=== PATIENT | female | born 1985 | race Caucasian/White ===

== ENCOUNTER 2016-11-03 15:36 | Emergency (ER) | payer OTHER ==
[~2016-11-03] VITALS: Ht 157.5 cm; Wt 77.1 kg
[~2016-11-03 15:36] MED LIST: AUGMENTIN 875 M1 TAB PO; CYCLOBENZAPRINE5 M2 PO; LOMOTIL 2.5-0.1 EACH PO; LOTRISONE CREAM15 GM TOP; NAPROSYN500 M1 PO; NASONEX17 GM NASB; PREDNISONE50 MG PO; PROVENTIL0.09 MG/A1 INH; ZOFRAN ODT4 M1 PO
--- NOTE | 2016-11-03 16:38 | ED INFLUENZA/URI COMPLAINT ---
History of Present Illness General Chief Complaint: General Adult Stated Complaint: FLU SYNPTOMS Source: patient, old records Exam Limitations: no limitations Vital Signs & Intake/Output Vital Signs & Intake/Output Vital Signs Date Time Temp Pulse Resp B/P Pulse O2 O2 Flow FiO2 Ox Delivery Rate 11/03 1801 97.8 88 18 110/80 99 / 1752 Room Air 11/03 1540 97.6 87 16 115/79 98 Room Air ED Intake and Output 11/04 0000 11/03 1200 Intake Total 1000 Output Total Balance 1000 Intake, IV 1000 Patient 170 lb Weight Allergies Coded Allergies: clarithromycin (From BIAXIN) (HIVES 07/19/16) ibuprofen (HIVES 07/19/16) Reconcile Medications Metoclopramide HCl (Reglan) 10 MG TABLET 1 TAB PO Q6 PRN nausea Triage Note: PT STATES SHE THINKS SHE HAS THE FLU SINCE LAST SATURDAY. PT HAS BODY ACHES, FEVER AND THEN BEGAN TO HAVE DIARRHEA. PT STATES SHE HAS NAUSEA Triage Nurses Notes Reviewed? yes : No Patient currently breastfeeds: No HPI: Patient is a 31-year-old female presents complaining of flulike symptoms. Symptoms onset 4 days ago. Patient reports she had a fever up to 101.4 which resolved 3 days ago. Nasal congestion with associated yellow rhinorrhea. Cough with sputum production. Patient had myalgias which have been improving. Associated nausea and diarrhea. Patient reports she has had minimal oral intake due to the severe nausea. Patient has been feeling lightheaded intermittently. Intermittent headache consistent with previous migraines. Patient had been taking Tylenol for her fevers and body aches. Positive sick contacts. Patient denies abdominal pain, chest pain (MARYURI BAIRES) Past History Travel History Traveled to [place] past 21 day No Medical History Any Pertinent Medical History? 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 No (MARYURI BAIRES) Review of Systems Review of Systems Constitutional: Reports: chills, fever (resolved), malaise, weakness. EENTM: Reports: nasal congestion. Respiratory: Reports: cough. Denies: short of breath. Cardiovascular: Denies: chest pain. GI: Reports: diarrhea, nausea. Denies: abdominal pain. Genitourinary: Reports: no symptoms. Musculoskeletal: Reports: muscle pain. Skin: Reports: no symptoms. Neurological/Psychological: Reports: headache. Hematologic/Endocrine: Reports: no symptoms. Immunologic/Allergic: Reports: no symptoms. (MARYURI BAIRES) Physical Exam Physical Exam General Appearance: well developed/nourished, alert, awake Head: atraumatic, normal appearance Eyes: Bilateral: normal appearance, PERRL, EOMI. Ears, Nose, Throat: normal ENT inspection, moist mucous membrane, hearing grossly normal, Tympanic normal, pharynx normal Neck: normal inspection, supple, full range of motion Respiratory: normal breath sounds, chest non-tender, no respiratory distress, lungs clear Cardiovascular: regular rate/rhythm Gastrointestinal: normal bowel sounds, soft, non-tender Back: normal inspection, normal range of motion Extremities: normal inspection, normal capillary refill, normal range of motion, no edema Neurologic/Psych: no motor/sensory deficits, awake, alert, oriented x 3, normal gait, normal mood/affect Skin: intact, normal color, warm/dry Lymphatic: bilateral anterior cervical lymphadenopathy Core Measures Severe Sepsis Present: No Septic Shock Present: No (MARYURI BAIRES) Progress Differential Diagnosis: influenza, meningitis, neutropenia, otitis, pneumonia, pharyngitis, sinusitis Plan of Care: Orders Procedure Date/time Status COMPREHENSIVE METABOLIC PANEL 11/03 1642 Complete CBC WITHOUT DIFFERENTIAL 11/03 1642 Complete RAPID VIRAL INFLUENZA A 11/03 1543 Complete Laboratory Tests 11/03/16 1707: Anion Gap 11, Estimated GFR > 60, BUN/Creatinine Ratio 10.0, Glucose 77, Calcium 9.2, Total Bilirubin 0.5, AST 21, ALT 36, Alkaline Phosphatase 58, Total Protein 7.4, Albumin 4.3, Globulin 3.1, Albumin/Globulin Ratio 1.4, CBC w Diff NO MAN DIFF REQ, RBC 4.30, MCV 89.1, MCH 29.9, RDW 13.6, MPV 8.6, Gran % 57.7, Lymphocytes % 34.9, Monocytes % 4.5, Eosinophils % 2.5, Basophils % 0.4, Absolute Granulocytes 4.5, Absolute Lymphocytes 2.7, Absolute Monocytes 0.4, Absolute Eosinophils 0.2, Absolute Basophils 0, PUBS MCHC 33.6 Patient reports significant improvement after IV fluids and IV Reglan. Patient nontoxic appearing, tolerating oral intake. Results of labs and influenza swab discussed with the patient. Patient appears stable for discharge. (MARYURI BAIRES) Initial ED EKG: none (MARYURI BAIRES) Departure Departure Time of Disposition: 1752 Disposition: HOME OR SELF CARE Condition: Stable Clinical Impression Primary Impression: Viral syndrome Referrals: AYE MYERS MD (PCP/Family) Additional Instructions: Drink plenty fluids and rest. Immodium as directed to help with your diarrhea. Follow-up with your primary care provider if no improvement by Saturday. Return to the emergency department if unable to stay hydrated, any increasing abdominal pain, difficulty breathing or worsening of symptoms. Departure Forms: Customer Survey General Discharge Information Prescriptions: Current Visit Scripts Metoclopramide HCl (Reglan) 1 TAB PO Q6 PRN nausea #12 TAB (MARYURI BAIRES) PA/MANAGER STRATEGIC ALLIANCES Co-Sign Statement Statement: ED Attending supervision documentation- [] I saw and evaluated the patient. I have also reviewed all the pertinent lab results and diagnostic results. I agree with the findings and the plan of care as documented in the PA's/MANAGER STRATEGIC ALLIANCES's documentation. [X] I have reviewed the ED Record and agree with the PA's/MANAGER STRATEGIC ALLIANCES's documentation. [] Additions or exceptions (if any) to the PAs/MANAGER STRATEGIC ALLIANCES's note and plan are summarized below: [] (SUYAPA MORENO,ELIZABETH)
[2016-11-03 17:15] LABS: ABSOLUTE BASOPHIL COUNT 0 /CUMM (0.0-0.2); ABSOLUTE EOSINOPHIL COUNT 0.2 /CUMM (0.0-0.7); ABSOLUTE GRANULOCYTE CT 4.5 /CUMM (1.4-6.5); ABSOLUTE LYMPH COUNT 2.7 /CUMM (1.2-3.4); ABSOLUTE MONOCYTE COUNT 0.4 /CUMM (0.10-0.60); BASOPHIL % 0.4 % (0.0-2.0); EOSINOPHIL % 2.5 % (0-5); GRANULOCYTE % 57.7 % (42.2-75.2); HEMATOCRIT 38.3 % (37-47); MEAN CORPUSCULAR HGB 29.9 PG (27.0-31.0); MEAN CORPUSCULAR HGB CONC 33.6 G/DL (33.0-37.0); MEAN CORPUSCULAR VOLUME 89.1 FL (81.0-99.0); MEAN PLATELET VOLUME 8.6 FL (7.4-10.4); PLATELET COUNT 218 /CUMM (130-400); RBC DISTRIBUTION WIDTH 13.6 % (11.5-14.5); WHITE BLOOD CELL COUNT 7.7 /CUMM (4.8-10.8)
[2016-11-03] MEDS ORDERED: REGLAN10 M1 PO (17:56)
[2016-11-03 18:01] VITALS: BP 110/80
== END 2016-11-03 18:22 ==
LOC: ERH 15:36
PROVIDERS: Physician Assistant
DX: B34.9 Viral infection, unspecified (principal)
CPT/HCPCS: 87804; 87804-59; 96361; 96374; J2765

== ENCOUNTER 2018-01-12 13:41 | Emergency (ER) | payer OTHER ==
[~2018-01-12] VITALS: Ht 157.5 cm; Wt 79.4 kg
[~2018-01-12 13:41] MED LIST changes: +AMOXICILLIN875 M1 PO; +BENZONATATE200 M1 PO; +MEDROL4 M2 PO; +PREDNISONE50 M1 PO; +PROAIR HFA8.5 GM INH; +PROVENTIL HFA6.7 GM INH; +REGLAN10 M1 PO; +ZOFRAN ODT4 M1 SL
[2018-01-12 14:44] LABS: ABSOLUTE BASOPHIL COUNT 0.1 /CUMM (0.0-0.2); ABSOLUTE EOSINOPHIL COUNT 0.3 /CUMM (0.0-0.7); ABSOLUTE GRANULOCYTE CT 10.7 /CUMM (1.4-6.5); ABSOLUTE LYMPH COUNT 3.1 /CUMM (1.2-3.4); ABSOLUTE MONOCYTE COUNT 0.5 /CUMM (0.10-0.60); BASOPHIL % 0.5 % (0.0-2.0); EOSINOPHIL % 2.3 % (0-5); GRANULOCYTE % 72.6 % (42.2-75.2); HEMATOCRIT 41.9 % (37-47); MEAN CORPUSCULAR HGB CONC 32.2 G/DL (33.0-37.0); MEAN PLATELET VOLUME 8.5 FL (7.4-10.4); PLATELET COUNT 396 /CUMM (130-400); RBC DISTRIBUTION WIDTH 14.2 % (11.5-14.5); RED BLOOD CELL CT 4.66 /CUMM (4.20-5.40); WHITE BLOOD CELL COUNT 14.7 /CUMM (4.8-10.8)
--- NOTE | 2018-01-12 15:19 | ED GENERAL ADULT ---
History of Present Illness General Chief Complaint: General Adult Stated Complaint: ?FLU,BODY ACHES,NAUSEA,DIARREHA Source: patient, family Exam Limitations: no limitations Vital Signs & Intake/Output Vital Signs & Intake/Output Vital Signs Date Time Temp Pulse Resp B/P B/P Pulse O2 O2 Flow FiO2 Mean Ox Delivery Rate 01/12 1744 98.0 70 18 115/72 97 Room Air Room Air 01/12 1642 98.2 71 18 116/73 100 Room Air 01/12 1358 97.6 102 18 123/85 98 Room Air Allergies Coded Allergies: clarithromycin (From BIAXIN) (HIVES 07/19/16) ibuprofen (HIVES 07/19/16) Reconcile Medications Albuterol Sulfate (Proventil Hfa) 90 MCG HFA.AER.AD 2 PUF INH Q4 sob Amoxicillin 875 MG TABLET 1 TAB PO BID bronchitis Benzonatate 200 MG CAPSULE 1 CAP PO TIDPRN cough Methylprednisolone. (Medrol) 4 MG TAB.DS.PK 1 DP PO AD bronchitis 6 on day 1 then reduce by one tablet daily until gone Ondansetron (Zofran Odt) 4 MG TAB.RAPDIS 1 TAB SL TID PRN NAUSEA Ondansetron (Zofran Odt) 4 MG TAB.RAPDIS 1 TAB SL TID Nausea Triage Note: REPORTS BODY ACHES, CHILLS. ALSO REPORTS DIARRHEA. THE SYMPTOMS BEGAN LAST NIGHT. NO FEVER. Triage Nurses Notes Reviewed? yes : No Patient currently breastfeeds: No HPI: 32 yo F PMH Asthma, Anxiety presenting with URI Sx, N/V/D. URI Sx for the last 2 -3 days with mild cough, congestion, rhinorrhea, dry/itchy throat. Associated systemic Sx with fatigue, malaise, myalgias, arthralgias. Nausea without emesis leading to decreased PO intake and diarrhea starting last night, 5 episodes of loose watery non-bloody bowel movements. Mild abdominal cramping relieved by diarrhea, no abdominal pain currently. Denies chest pain, palpitations, SOB, urinary Sx, vaginal Sx, headache, neck pain, focal neurologic Sx, rash. No recent travel or sick contacts. Past History Travel History Traveled to [place] past 21 day No Medical History Any Pertinent Medical History? 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 Yes Review of Systems Review of Systems Constitutional: Reports: see HPI. EENTM: Reports: see HPI. Respiratory: Reports: see HPI. Cardiovascular: Reports: no symptoms. GI: Reports: see HPI. Genitourinary: Reports: no symptoms. Musculoskeletal: Reports: no symptoms. Skin: Reports: no symptoms. Neurological/Psychological: Reports: no symptoms. Hematologic/Endocrine: Reports: no symptoms. Immunologic/Allergic: Reports: no symptoms. All Other Systems: Reviewed and Negative Physical Exam Physical Exam General Appearance: no apparent distress, alert, awake, anxious Head: atraumatic Eyes: Bilateral: PERRL, EOMI. Ears, Nose, Throat: Dry mucous membranes Neck: normal inspection, full range of motion Respiratory: normal breath sounds, no respiratory distress, lungs clear Cardiovascular: tachycardia Peripheral Pulses: 2+ radial (R), 2+ radial (L), 2+ dorsalis pedis (R), 2+ dorsalis pedis (L) Gastrointestinal: soft, non-tender Comments: Pulmonary: Lungs CTAB Abdomen: Soft, non-distended, non-TTP throughout Core Measures ACS in differential dx? No CVA/TIA Diagnosis: No Sepsis Present: Yes Sepsis Focused Exam Completed? Yes Progress Differential Diagnoses I considered the following diagnoses in my evaluation of the patient: [Viral URI , bronchitis, influenza, pneumonia, viral gastritis, low concern for surgical abdominal pathology] Plan of Care: Orders Procedure Date/time Status URINE 01/12 1423 Complete COMPREHENSIVE METABOLIC PANEL 01/12 1423 Complete CBC WITHOUT DIFFERENTIAL 01/12 1423 Complete RAPID VIRAL INFLUENZA A 01/12 1346 Complete Laboratory Tests 01/12/18 1623: Urine Test NEGATIVE 01/12/18 1523: Anion Gap 10, Estimated GFR > 60, BUN/Creatinine Ratio 15.0, Glucose 81, Calcium 9.2, Total Bilirubin 0.6, AST 19, ALT 29, Alkaline Phosphatase 59, Total Protein 7.1, Albumin 4.2, Globulin 2.9, Albumin/Globulin Ratio 1.4 01/12/18 1438: CBC w Diff NO MAN DIFF REQ, RBC 4.66, MCV 90.0, MCH 29.0, MCHC 32.2 L, RDW 14.2 , MPV 8.5, Gran % 72.6, Lymphocytes % 21.2, Monocytes % 3.4, Eosinophils % 2.3, Basophils % 0.5, Absolute Granulocytes 10.7 H, Absolute Lymphocytes 3.1, Absolute Monocytes 0.5, Absolute Eosinophils 0.3, Absolute Basophils 0.1 Microbiology 01/12 1416 NASOPHARYN: Influenza Virus A & B Rapid Smear - COMP Physician MDM: 32 yo F PMH Asthma, Anxiety presenting with URI Sx, N/V/D. HR 100s, BP stable, remainder of exam as above. DDx: Viral URI, influenza, bronchitis, pneumonia, viral gastroenteritis, overall low concern for surgical abdominal pathology (given benign abdominal exam and viral prodrome) or severe sepsis. CBC with leukocytosis to 14. CMP unremarkable. Rapid influenza negative. CXR without focal consolidation or airspace disease. Given 2L NS and zofran with resolution of tachycardia, marked subjective improvement per patient, resolution of nausea, patient tolerated PO well in ED without emesis. Discussed results of ED work-up with patient, I feel the most likely diagnosis is a viral gastroenteritis, I have a low concern for UTI or surgical abdominal pthology, but I noted in our discussion that we did not specifically check for these other causes of fever and nausea, given return precautions for worsening abdominal pain, inability to tolerate PO, or other concerning Sx. D/Oscar with zofran Rx, plan for close f/u with PMD for re-evaluation. Initial ED EKG: none Departure Departure Disposition: HOME OR SELF CARE Condition: Stable Clinical Impression Primary Impression: Gastroenteritis Referrals: Patient Has No Primary Care Dr (PCP/Family) Additional Instructions: Take tylenol or ibuprofen for fevers and muscle aches. Take zofran for nausea. Drink plenty of fluids. Follow up with your primary care physician in the next 2-3 days. Return to the ED for any new, worsening, or concerning symptoms. Departure Forms: Customer Survey General Discharge Information Prescriptions: Current Visit Scripts Ondansetron (Zofran Odt) 1 TAB SL TID #20 TAB Critical Care Note Critical Care Note Critical Care Time: non-applicable
--- NOTE | 2018-01-12 17:40 | RADIOLOGY REPORT ---
EXAMINATION: XR CHEST CLINICAL INFORMATION: Cough. COMPARISON: Chest done on 09/06/2016. TECHNIQUE: 2 views of the chest were obtained. FINDINGS: Both lungs are symmetrically expanded, and are clear. The cardiomediastinal silhouette is within normal limit. There is no pleural effusion present. The visualized upper abdomen is unremarkable. No significant change since 09/06/2016. IMPRESSION: No acute cardiopulmonary disease.
[2018-01-12 17:44] VITALS: BP 115/72
[2018-01-12] MEDS ORDERED: ZOFRAN ODT4 M1 SL (17:48)
== END 2018-01-12 18:23 ==
LOC: ERH 13:41
PROVIDERS: Student in an Organized Health Care Education/Training Program
DX: K52.9 Noninfective gastroenteritis and colitis, unspecified (principal)
CPT/HCPCS: 71046; 81025; 87804; 87804-59; 96361; 96374; J2405

== ENCOUNTER 2018-02-13 16:32 | Emergency (ER) | payer OTHER ==
[~2018-02-13] VITALS: Ht 157.5 cm; Wt 79.4 kg
--- NOTE | 2018-02-13 18:42 | ED GENERAL ADULT ---
History of Present Illness General Chief Complaint: General Adult Stated Complaint: LEFT SIDED RIB PAIN, X 4 DAYS Source: patient Exam Limitations: no limitations Vital Signs & Intake/Output Vital Signs & Intake/Output Vital Signs Date Time Temp Pulse Resp B/P B/P Pulse O2 O2 Flow FiO2 Mean Ox Delivery Rate 02/13 2106 98.1 77 18 122/84 99 Room Air 02/13 1941 Room Air 02/13 1902 98.2 74 18 117/85 100 Room Air 02/13 1639 97.9 84 16 132/85 99 Room Air ED Intake and Output 02/14 0000 02/13 1200 Intake Total 0 Output Total Balance 0 Intake, Oral 0 Patient 175 lb Weight Weight Reported by Patient Measurement Method Allergies Coded Allergies: clarithromycin (From BIAXIN) (HIVES 07/19/16) ibuprofen (HIVES 07/19/16) Reconcile Medications Albuterol Sulfate (Proventil Hfa) 90 MCG HFA.AER.AD 2 PUF INH Q4 sob Amoxicillin 875 MG TABLET 1 TAB PO BID bronchitis Benzonatate 200 MG CAPSULE 1 CAP PO TIDPRN cough Cyclobenzaprine HCl 5 MG TABLET 1 TAB PO TIDPRN PRN MUSCLE STRAIN Meloxicam (Mobic) 15 MG TABLET 1 TAB PO DAILY PRN PAIN Methylprednisolone. (Medrol) 4 MG TAB.DS.PK 1 DP PO AD bronchitis 6 on day 1 then reduce by one tablet daily until gone Ondansetron (Zofran Odt) 4 MG TAB.RAPDIS 1 TAB SL TID PRN NAUSEA Ondansetron (Zofran Odt) 4 MG TAB.RAPDIS 1 TAB SL TID Nausea Triage Note: 32 Y/O FEMALE C/O L SIDED PAIN, "UNDER MY RIBCAGE". PT STATES PAIN HAS BEEN CONSTANT X 4 DAYS. DENIES N/V/D. DENIES CHANGES IN APPETITE. DENIES COUGH OR URI SYMPTOMS. DENIES OTHER COMPLAINTS. AFEBRILE. Triage Nurses Notes Reviewed? yes Onset: Gradual Duration: day(s): Timing: recent history Severity: moderate : No Patient currently breastfeeds: No HPI: 32yo female presents to ED complaining of left sided ribcage pain x 4 days. Patient states her pain has been constant, aching, worse with movement, non pleuritic. Patient states pain radiates laterally. Patient had no trauma or injury prior to onset of symptoms. Patient denies dyspnea, cough, hemoptysis, abdominal pain, nausea, vomiting, fevers, chills, leg swelling, recent travel. (Kesha Gu) Past History Travel History Traveled to [place] past 21 day No Medical History Any Pertinent Medical History? 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 No (Kesha Gu) Review of Systems Review of Systems Constitutional: Reports: no symptoms. EENTM: Reports: no symptoms. Respiratory: Reports: no symptoms. Cardiovascular: Reports: see HPI. GI: Reports: no symptoms. Genitourinary: Reports: no symptoms. Musculoskeletal: Reports: see HPI. Skin: Reports: no symptoms. Neurological/Psychological: Reports: no symptoms. Hematologic/Endocrine: Reports: no symptoms. Immunologic/Allergic: Reports: no symptoms. All Other Systems: Reviewed and Negative (Kesha Gu) Physical Exam Physical Exam General Appearance: well developed/nourished, no apparent distress, alert, awake Head: atraumatic, normal appearance Eyes: Bilateral: normal appearance. Ears, Nose, Throat: hearing grossly normal Neck: normal inspection, supple, full range of motion Respiratory: normal breath sounds, chest non-tender, no respiratory distress, lungs clear Cardiovascular: regular rate/rhythm Gastrointestinal: normal bowel sounds, soft, non-tender, no organomegaly Back: normal inspection, normal range of motion Extremities: normal inspection, normal range of motion Neurologic/Psych: awake, alert, oriented x 3 Skin: intact, normal color, warm/dry Core Measures ACS in differential dx? Yes CVA/TIA Diagnosis: No Sepsis Present: No Sepsis Focused Exam Completed? No (Kesha Gu) Progress Differential Diagnoses I considered the following diagnoses in my evaluation of the patient: [Muscle strain, costochondritis, pleurisy, pneumonia, acute coronary syndrome, pulmonary embolism, GERD, PUD] Plan of Care: Orders Procedure Date/time Status URINE 02/13 1834 Complete URINALYSIS 02/13 1834 Complete TROPONIN LEVEL 02/13 1834 Complete D-DIMER 02/13 1834 Complete COMPREHENSIVE METABOLIC PANEL 02/13 1834 Complete CBC WITHOUT DIFFERENTIAL 02/13 1834 Complete EKG 02/13 1834 Active Laboratory Tests 02/13/181909: Anion Gap 11, Estimated GFR > 60, BUN/Creatinine Ratio 17.1, Glucose 88, Calcium 9.3, Total Bilirubin 0.2, AST 20, ALT 25, Alkaline Phosphatase 64, Troponin I < 0.01, Total Protein 7.0, Albumin 4.5, Globulin 2.5, Albumin/Globulin Ratio 1.8, D-Dimer High Sensitivty < 200, CBC w Diff NO MAN DIFF REQ, RBC 4.34, MCV 90.4, MCH 30.1, MCHC 33.3, RDW 14.1, MPV 8.9, Gran % 47.1, Lymphocytes % 42.9, Monocytes % 5.0, Eosinophils % 4.4, Basophils % 0.6, Absolute Granulocytes 5.8, Absolute Lymphocytes 5.3 H, Absolute Monocytes 0.6, Absolute Eosinophils 0.5, Absolute Basophils 0.1 02/13/181833: Urinalysis LIGHT H, Urine Color STRAW, Urine Clarity CLEAR, Urine pH 6.0, Ur Specific [place] 1.020, Urine Protein NEG, Urine Ketones NEG, Urine Nitrite NEG, Urine Bilirubin NEG, Urine Urobilinogen 0.2, Ur Leukocyte Esterase NEG, Ur Microscopic SEDIMENT EXAMINED, Urine WBC RARE, Ur Epithelial Cells MANY H, Urine Crystals RARE CA OX, Urine Hemoglobin TRACE-LYSED, Urine Glucose NEG, Urine Test NEGATIVE Chest x-ray was within normal limits. Patient's EKG is in sinus rhythm, no acute ischemic changes. Blood work is stable, troponin enzymes negative. Patient's symptoms are worse with movement, likely related to muscle strain versus inflammatory process. Patient started on muscle relaxer and meloxicam. Patient in no acute distress, stable vital signs, nontoxic appearing. Patient agrees with plan of care. She is making an appointment with her primary care doctor to follow-up with them next week. The patient was discussed with Dr. Mclain who agrees with this plan. Diagnostic Imaging: Viewed by Me: Radiology Read. Discussed w/RAD: Radiology Read. Radiology Impression: PATIENT: LOLA TEAGUE PRESENT AGE: 32 PATIENT ACCOUNT NO: [id number] : 85 LOCATION: [facility] ORDERING PHYSICIAN: Kesha DE LA TORRE SERVICE DATE: 02/13/18 EXAM TYPE: RAD - XRY-CHEST XRAY, TWO VIEWS EXAMINATION: XR CHEST CLINICAL INFORMATION : Left lower rib cage pain. COMPARISON: Chest x-ray 01/12/2018 TECHNIQUE: 2 views of the chest were obtained. FINDINGS: No significant abnormality is noted involving the heart, lungs, mediastinum, bony thorax or soft tissues. IMPRESSION : Unremarkable examination. DICTATED BY: Henrry Yap MD DATE/TIME DICTATED:2004 COIL CONNECTOR REPAIRER:CAROLYN DATE/TIME TRANSCRIBED:02/13/182004 CONFIDENTIAL, DO NOT COPY WITHOUT APPROPRIATE AUTHORIZATION. <Electronically signed in Other Vendor System> SIGNED BY: Henrry Yap MD 02/13/182008 Initial ED EKG: sinus rhythm @72bpm Prior EKG: unchanged (11/05/15) (Hansa DE LA TORRE,Kesha Jacinto) Departure Departure Disposition: HOME OR SELF CARE Condition: Stable Clinical Impression Primary Impression: Rib pain Secondary Impressions: Muscle strain Referrals: Patient Has No Primary Care Dr (PCP/Family) Additional Instructions: Take meloxicam as prescribed as needed for pain. Take Flexeril as prescribed as needed for muscle strain. Follow-up with your primary care doctor next week. If you have any worsening symptoms or other concerns please return to the emergency department. Please note that there might be incidental findings in your evaluation that are unrelated to the current emergency department visit. Please notify your primary care doctor about this emergency department visit in order to obtain and review all of the testing performed so that these incidental findings can be monitored as needed. If you had an x-ray performed, please understand that some fractures may not be seen on the initial set of x-rays. If your symptoms persist you might need a repeat set of x-rays to check for such a fracture. If you had a laceration evaluated, please understand that foreign bodies such as glass or wood may not be visible to the naked eye or on plain x-rays. If the wound becomes red, swollen, increasingly more painful or if there is any drainage from the wound, please have it reevaluated by a physician for the possibility of a retained foreign body. If you're unable to follow up as outlined in the discharge instructions please return to the emergency department. Thank you for choosing the [facility] Emergency Department for your care. It was a pleasure to serve you today. Departure Forms: Customer Survey General Discharge Information Prescriptions: Current Visit Scripts Meloxicam (Mobic) 1 TAB PO DAILY PRN PAIN #15 TAB Cyclobenzaprine HCl 1 TAB PO TIDPRN PRN MUSCLE STRAIN #15 TAB (Kesha Gu) PA/SENIOR INVESTMENT ANALYST Co-Sign Statement Statement: ED Attending supervision documentation- I saw and evaluated the patient. I have also reviewed all the pertinent lab results and diagnostic results. I agree with the findings and the plan of care as documented in the PA's/SENIOR INVESTMENT ANALYST's documentation. x I have reviewed the ED Record and agree with the PA's/SENIOR INVESTMENT ANALYST's documentation. [] Additions or exceptions (if any) to the PAs/SENIOR INVESTMENT ANALYST's note and plan are summarized below: [] (Rayne MORENO,Maximilian) Critical Care Note Critical Care Note Critical Care Time: non-applicable (Kesha Gu)
[2018-02-13 19:24] LABS: ABSOLUTE BASOPHIL COUNT 0.1 /CUMM (0.0-0.2); ABSOLUTE EOSINOPHIL COUNT 0.5 /CUMM (0.0-0.7); ABSOLUTE GRANULOCYTE CT 5.8 /CUMM (1.4-6.5); ABSOLUTE LYMPH COUNT 5.3 /CUMM (1.2-3.4); ABSOLUTE MONOCYTE COUNT 0.6 /CUMM (0.10-0.60); BASOPHIL % 0.6 % (0.0-2.0); EOSINOPHIL % 4.4 % (0-5); HEMATOCRIT 39.3 % (37-47); MEAN CORPUSCULAR HGB 30.1 PG (27.0-31.0); MEAN CORPUSCULAR HGB CONC 33.3 G/DL (33.0-37.0); MEAN CORPUSCULAR VOLUME 90.4 FL (81.0-99.0); MEAN PLATELET VOLUME 8.9 FL (7.4-10.4); PLATELET COUNT 329 /CUMM (130-400); RBC DISTRIBUTION WIDTH 14.1 % (11.5-14.5); RED BLOOD CELL CT 4.34 /CUMM (4.20-5.40); WHITE BLOOD CELL COUNT 12.4 /CUMM (4.8-10.8)
[2018-02-13 19:27] LABS: GRANULOCYTE % 47.1 % (42.2-75.2)
--- NOTE | 2018-02-13 20:09 | RADIOLOGY REPORT ---
EXAMINATION: XR CHEST CLINICAL INFORMATION: Left lower rib cage pain. COMPARISON: Chest x-ray 01/12/2018 TECHNIQUE: 2 views of the chest were obtained. FINDINGS: No significant abnormality is noted involving the heart, lungs, mediastinum, bony thorax or soft tissues. IMPRESSION: Unremarkable examination.
[2018-02-13] MEDS ORDERED: MOBIC15 M1 PO (21:03)
[2018-02-13] MEDS ORDERED: CYCLOBENZAPRINE5 M2 PO (21:03)
[2018-02-13 21:06] VITALS: BP 122/84
== END 2018-02-13 21:43 ==
LOC: ERH 16:32
PROVIDERS: Physician Assistant
DX: S29.011A Strain of muscle and tendon of front wall of thorax, initial encounter (principal); X58.XXXA Exposure to other specified factors, initial encounter; Y92.9 Unspecified place or not applicable; Y93.9 Activity, unspecified
CPT/HCPCS: 71046; 81001; 81025; 93005; 93010